=== PATIENT | female | born 1930 | race Caucasian/White ===

== ENCOUNTER 2016-09-28 14:08 | Outpatient (CLI) | payer MEDICARE ==
[2016-09-28 14:42] LABS: Anion Gap 13 mmol/L (10-20); BUN (Urea Nitrogen) 18 mg/dL (9.8-20.1); Calc. Creatinine Clearance 0 mL/min (70-130); Calcium 8.8 mg/dL (7.8-10.44); Carbon Dioxide 25 mmol/L (23-31); Chloride 106 mmol/L (98-107); Estimated GFR-MDRD 33
== END 2016-09-28 14:09 | disposition home or self-care (01) ==
LOC: BURLAB 14:08
PROVIDERS: ATTEND Internal Medicine Nephrology
DX: N18.3 Chronic kidney disease, stage 3 (moderate) (principal)
CPT/HCPCS: 36415; 80048

== ENCOUNTER 2016-11-13 09:50 | Outpatient (CLI) | payer MEDICARE ==
[2016-11-13 10:56] LABS: #Basophils 0.1 thou/uL (0.0-0.2); #Eosinphils 0.1 thou/uL (0.0-0.7); #Lymphocytes 1.1 thou/uL (1.20-3.40); #Monocytes 0.5 thou/uL (0.11-0.59); #Neutrophils 3.4 thou/uL (1.40-6.50); %Basophils 1.3 % (0.0-1.0); %Eosinophils 1.8 % (0.0-10.0); %Monocytes 9.5 % (0.0-10.0); Hematocrit 38.7 % (36.0-47.0); Mean Platelet Volume 6.7 fL (7.4-10.4); White Blood Cell (WBC) Count 5.1 thou/uL (4.8-10.8)
[2016-11-13 11:00] LABS: ALT (SGPT) 64 U/L (0-55); AST (SGOT) 58 U/L (5-34); Alkaline Phosphatase 77 U/L (40-150); Anion Gap 13 mmol/L (10-20); BUN (Urea Nitrogen) 12 mg/dL (9.8-20.1); Bilirubin, Total 0.7 mg/dL (0.2-1.2); Calc. Creatinine Clearance 0 mL/min (70-130); Calcium 8.9 mg/dL (7.8-10.44); Carbon Dioxide 26 mmol/L (23-31); Chloride 109 mmol/L (98-107); Estimated GFR-MDRD 36; Globulin 2.7 g/dL (2.4-3.5); LDL Cholesterol, Calculated 52 mg/dL; Protein, Total 6.5 g/dL (5.8-8.1)
== END 2016-11-13 09:51 | disposition home or self-care (01) ==
LOC: HPCALD 09:50
PROVIDERS: ATTEND Family Medicine
DX: I10 Essential (primary) hypertension (principal); E03.9 Hypothyroidism, unspecified; E78.5 Hyperlipidemia, unspecified
CPT/HCPCS: 36415; 80053; 80061; 84439; 84443; 85025